=== PATIENT | female | born 1980 | race Caucasian/White ===

== ENCOUNTER 2021-03-06 09:38 | Emergency (ER) | payer OTHER ==
[~2021-03-06] VITALS: Ht 160 cm; Wt 52.2 kg
[2021-03-06 09:48] VITALS: BP 116/74
[2021-03-06] MEDS ORDERED: LID5T TP (10:17)
[2021-03-06 10:22] VITALS: BP 116/74
== END 2021-03-06 10:22 | disposition home or self-care (01) ==
LOC: MED 09:38
DX: M54.6 Pain in thoracic spine (principal); M25.511 Pain in right shoulder; X50.0XXA Overexertion from strenuous movement or load, initial encounter; Y93.89 Activity, other specified; Y92.89 Other specified places as the place of occurrence of the external cause; Y99.8 Other external cause status
CPT/HCPCS: 99283